=== PATIENT | female | born 2000 | race Caucasian/White ===

== ENCOUNTER 2019-10-02 09:30 | Emergency (ER) | payer OTHER, SELFPAY ==
[2019-10-02 09:35] VITALS: BP 152/89; PULSE 83; RESP 13; TEMP 36.7; O2SAT 98; BMI 27.4
--- NOTE | 2019-10-02 09:48 | DI.RAD.S_ITS ---
PROCEDURE: XR ACUTE ABDOMEN SERIES INDICATIONS: N/V/D TECHNIQUE: One view chest and two views of the abdomen were acquired. COMPARISON: None. FINDINGS: Surgical changes and devices: None. Chest: Lungs are clear. Heart size is normal. No pleural effusions. No pneumoperitoneum. Abdomen: Bowel gas pattern is normal. No suspicious calcifications. Visualized solid organ contours appear normal. Bones: No suspicious bony lesions. IMPRESSION: No acute process. Dictated by: Mary Rincon M.D. on 10/02/2019 at 10:50 Approved by: Mary Rincon M.D. on 10/02/2019 at 10:54
--- NOTE | 2019-10-02 09:48 | ED_ITS ---
HPI - Nausea/Vomiting/Diarrhea General Chief complaint: Nausea/Vomiting/Diarrhea Stated complaint: THROWING UP FOR THREE DAYS Time Seen by Provider: 10/02/19 09:34 Source: patient Mode of arrival: Ambulatory Limitations: no limitations History of Present Illness HPI Narrative: 19F daily smoker with noncontributory medical history presents with a chief complaint a few days of nausea, vomiting and diarrhea. She is beginning to feel little bit dizzy upon standing. She denies any pain but does admit to some cramping that builds until she has a bowel movement or vomits. She denies any bloody stools or emesis. She denies exposure to other ill persons. She denies any recent antibiotics, bad food or travel. She has had no runny nose, sore throat, cough or shortness of breath nor any suspicion of interaction with folks known to have COVID-19. MD complaint: nausea, vomiting and diarrhea Onset (ago): day(s) Description of Vomiting: food contents and watery Description of Diarrhea: watery Associated Abdominal Pain: Yes Location of pain: diffuse Severity: mild Quality: cramping Pain Consistency: intermittent Relieving factors: bowel movement and vomiting Exacerbating factors: none Context: other Associated symptoms: malaise Related Data Previous Rx's Medication Instructions Recorded ondansetron 4 mg PO TID-QID PRN #10 tab 10/02/19 Allergies Allergy/AdvReac Type Severity Reaction Status Date / Time Penicillins Allergy Verified 10/02/19 09:38 Review of Systems Constitutional Constitutional: Denies chills, Denies fatigue, Denies fever(s), Denies frequent falls, Denies lethargy and Reports weakness Eyes Eyes: Denies change in vision, Denies eye discharge, Denies irritation and Denies loss of vision ENT Ears, Nose, Mouth, and Throat: Denies change in voice, Denies dizziness, Denies neck pain, Denies sore throat and Denies throat swelling Cardiovascular Cardiovascular: Denies chest pain, Denies irregular heart rhythm, Denies lightheadedness, Denies palpitations, Denies dyspnea, Denies dyspnea on exertion and Denies orthopnea Respiratory Respiratory: Denies cough, Denies dyspnea, Denies dyspnea on exertion and Denies wheezing Gastrointestinal Gastrointestinal: Denies abdominal pain, Denies change in bowel habits, Reports diarrhea, Reports nausea and Reports vomiting Genitourinary Genitourinary: Denies hematuria, Denies flank pain, Denies urinary incontinence and Denies urinary urgency Musculoskeletal Musculoskeletal: Denies back pain, Denies muscle weakness, Denies neck pain, Denies numbness and Denies tingling Integumentary/Breasts Skin/Breast: Denies pruritus, Denies erythema, Denies rash and Denies wounds Neurologic Neurologic: Denies behavioral changes, Denies confusion, Denies dizziness, Denies frequent falls, Denies loss of vision, Denies numbness, Denies tingling and Reports weakness Psychiatric Psychiatric: Denies anxiety, Denies behavioral changes, Denies confusion, Denies depression, Denies homicidal ideation and Denies suicidal ideation Endocrine Endocrine: Denies fatigue, Denies flushing and Denies palpitations Hematologic/Lymphatic Hematologic/Lymphatic: Denies easy bruising Allergic/Immunologic Allergic/Immunologic: Denies urticaria, Denies throat swelling and Denies wheezing Patient History Social History Smoking Status: Current every day smoker Smoking Status: Current every day smoker alcohol intake frequency: holidays/special occasions only Substance Use Type: marijuana Exam Narrative Exam Narrative: GENERAL: [19] year old patient appears stated age. Well- nourished, well-developed patient, in mild distress. HEAD: Atraumatic. Normocephalic. EYES: Pupils equal round and reactive. Extraocular motions intact. No scleral icterus. No injection or drainage. ENT: Nose without bleeding, purulent drainage. Throat without erythema, tonsillar hypertrophy or exudate. Airway patent. NECK: Trachea midline. Non tender CARDIOVASCULAR: Regular rate and rhythm without murmurs, gallops, or rubs. RESPIRATORY: Clear to auscultation. Breath sounds equal bilaterally. No wheezes, rales, or rhonchi. GASTROINTESTINAL: Abdomen soft, non-tender, nondistended. Quiet bowel sounds in all 4 quadrants EXTREMITIES: No edema or joint tenderness. BACK: Nontender without deformity or crepitance. No flank tenderness. NEURO: AOx3. SKIN: No rash or erythema of visible areas Initial Vital Signs Initial Vital Signs: Vital Signs Temperature 98.0 F 10/02/19 09:35 Pulse Rate 83 10/02/19 09:35 Respiratory Rate 13 10/02/19 09:35 Blood Pressure 152/89 H 10/02/19 09:35 Pulse Oximetry 98 10/02/19 09:35 Course Course Course Narrative: Patient feeling much better after fluids and above-stated medications Orders Ordered: ED Orders 10/02/19 09:48 XR acute abdomen series Stat 10/02/19 10:03 Complete Blood Count AUTO DIFF Stat Comprehensive Metabolic Panel Stat Discontinued Medications Sodium Chloride (Normal Saline 0.9%) 1,000 mls @ 1,000 mls/hr IV BOLUS ONE Stop: 10/02/19 10:47 Last Infusion: 10/02/19 10:50 Dose: 0 mls/hr Documented by: Admin: 10/02/19 09:57 Dose: 1,000 mls/hr Documented by: MARCIAL Ondansetron HCl (Zofran) 4 mg IV NOW ONE Stop: 10/02/19 09:49 Last Admin: 10/02/19 09:57 Dose: 4 mg Documented by: MARCIAL Vital Signs Vital signs: Vital Signs - 8 hr 10/02/19 09:35 10/02/19 10:51 Temperature 98.0 F Pulse Rate 83 63 Respiratory Rate 13 Blood Pressure 152/89 H Blood Pressure [Left Arm] 125/79 Pulse Oximetry 98 100 MDM - Nausea/Vomiting/Diarrhea Lab Data Result diagrams: 10/02/19 10:03 10/02/19 10:03 Labs: Lab Results 10/02/19 10/02/19 Range/Units 10:03 10:03 WBC 3.8 L (4.5-11.0) X10^3/uL RBC 4.49 (4.0-5.2) X10^6/uL Hgb 14.3 (12.0-16.0) g/dL Hct 42.1 (36-46) % MCV 93.9 (80-100) fL MCH 31.8 (26-34) PG MCHC 33.9 (30-36) % RDW 13.5 (11.6-14.8) % Plt Count 247 (150-400) X10^3/uL Neut % (Auto) 47.1 L (50-75) % Lymph % (Auto) 35.7 (25-40) % [place] % (Auto) 11.4 (3-14) % Eos % (Auto) 5.0 H (2-4) % Baso % (Auto) 0.8 (0-2) % Neut # (Auto) 1800 (2422-9867) /uL Lymph # (Auto) 1300 (2515-9294) /uL [place] # (Auto) 400 (0-900) /uL Eos # (Auto) 200 (0-450) /uL Baso # (Auto) 0 (0-100) /uL Sodium 138 (137-145) mmol/L Potassium 4.1 (3.4-5.1) mmol/L Chloride 106 (98-107) mmol/L Carbon Dioxide 23 (22-32) mmol/L BUN 5 L (7-17) mg/dL Creatinine 0.64 (0.52-1.04) mg/dL Estimated GFR > 60.0 (>60) mL/min BUN/Creatinine Ratio 7.8 (6-22) Glucose 112 H (70-100) mg/dL Calcium 9.6 (8.4-10.2) mg/dL Total Bilirubin 1.0 (0.2-1.3) mg/dL AST 26 (14-36) IU/L ALT 19 (<35) IU/L Alkaline Phosphatase 57 (38-126) U/L Total Protein 7.3 (6.3-8.2) g/dL Albumin 4.5 (3.5-5.0) g/dL Globulin 2.8 (1.7-4.1) g/dL Albumin/Globulin Ratio 1.6 (1.0-2.8) Point of Care Testing Test Results Negative Urine Dip Bedside Urine Glucose Negative Bedside Urine Bilirubin - Negative Bedside Urine Ketone - Negative Urine Specific [place] 1.010 Bedside Urine Occult Blood - Negative Bedside Urine pH 7.0 Bedside Urine Protein - Negative Bedside Urine Urobilinogen - Negative Bedside Urine Nitrite - Negative Bedside Urine Leukocytes - Negative Esterase Discharge Plan Departure Patient Disposition: Home Clinical Impression: Nausea, Vomiting, and Diarrhea Discharge Date/Time: 10/02/19 10:55 Instructions: DI for Dehydration -- Adult, DI for Vomiting -- Adult Activity Restrictions/Additional Instructions: 1. Drink plenty of fluids with frequent small sips. 2. For the next 24 hours a clear liquid diet is advised. After that please employ a brat diet which would include bananas, rice, apples, toast. 3. Please take medications as directed. 4. Please follow-up with your doctor in the next 1-2 days. Call the office for an appointment. 5. Please return to the emergency Department for any worsening or persistent symptoms, such as increasing pain or fever. Prescriptions: New ondansetron 4 mg tablet,disintegrating 4 mg PO TID-QID PRN (Reason: nausea and vomiting) Qty: 10 RF: 0 Referrals: Ada Gavin MD [Primary Care Provider] - Stand Alone Forms: Work Release Note
[2019-10-02] MEDS: ONDANSETRON 4 MG/2 ML INJ IV (09:57)
[2019-10-02] MEDS: SODIUM CHLORIDE 0.9% 1,000 ML 1000 ML IV (09:57)
[2019-10-02 10:10] LABS: Add Manual Diff / Slide Review NO; Basophils Absolute Auto 0 /uL (0-100); Basophils Percent Auto 0.8 % (0-2); Eosinophils Absolute Auto 200 /uL (0-450); Hematocrit 42.1 % (36-46); Hemoglobin 14.3 g/dL (12.0-16.0); Lymphocytes Absolute Auto 1300 /uL (1100-4500); Lymphocytes Percent Auto 35.7 % (25-40); Mean Corpuscular HGB Conc 33.9 % (30-36); Mean Corpuscular Hemoglobin 31.8 PG (26-34); Mean Corpuscular Volume 93.9 fL (80-100); Monocytes Absolute Auto 400 /uL (0-900); Monocytes Percent Auto 11.4 % (3-14); Neutrophils Absolute Auto 1800 /uL (1500-7000); Neutrophils Percent Auto 47.1 % (50-75); Platelet Count 247 X10^3/uL (150-400); Red Blood Cell Count 4.49 X10^6/uL (4.0-5.2); Red Cell Distribution Width 13.5 % (11.6-14.8); White Blood Cell Count 3.8 X10^3/uL (4.5-11.0)
[2019-10-02 10:21] LABS: Albumin 4.5 g/dL (3.5-5.0); Albumin Globulin Ratio 1.6 (1.0-2.8); Carbon Dioxide 23 mmol/L (22-32); Chloride 106 mmol/L (98-107); Estimated Glomerular Filt Rate > 60.0 mL/min (>60); Globulin 2.8 g/dL (1.7-4.1); Total Protein 7.3 g/dL (6.3-8.2)
[2019-10-02 10:22] LABS: Alanine Aminotransferase 19 IU/L (<35); Alkaline Phosphatase 57 U/L (38-126); Aspartate Aminotransferase 26 IU/L (14-36); BUN Creatinine Ratio 7.8 (6-22); Blood Urea Nitrogen 5 mg/dL (7-17); Calcium 9.6 mg/dL (8.4-10.2); Glucose 112 mg/dL (70-100); HEMOLYSIS < 15 (0-50); Potassium 4.1 mmol/L (3.4-5.1); Sodium 138 mmol/L (137-145)
[2019-10-02 10:51] VITALS: BP 125/79; PULSE 63; O2SAT 100
== END 2019-10-02 10:55 | disposition home or self-care (01) ==
PROVIDERS: Emergency Provider Emergency Medicine; PCP Family Medicine
DX: R11.2 Nausea with vomiting, unspecified (principal); R19.7 Diarrhea, unspecified
CPT/HCPCS: 36415; 74022; 80053; 81003; 81025; 85025; 96361; 96374; 99284; J2405

== ENCOUNTER 2020-04-14 12:49 | Outpatient (RCR) | payer SELFPAY ==
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
--- NOTE | 2020-04-21 09:41 | PT-OP ANOTE ---
PT noticed that pt cancelled appointments. PT called pt on number in chart and the number is temporarily unavailable and so unable to speak with pt or leave message.
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
== END 2020-06-04 10:53 | disposition home or self-care (01) ==
LOC: PHYS 12:49
PROVIDERS: PCP Family Medicine; Referring Provider Family Medicine; Visit Provider Family Medicine
DX: S06.0X0D Concussion without loss of consciousness, subsequent encounter (principal); S13.4XXD Sprain of ligaments of cervical spine, subsequent encounter; S60.221D Contusion of right hand, subsequent encounter
CPT/HCPCS: 97162; 97535

== ENCOUNTER 2020-05-08 15:51 | Emergency (ER) | payer SELFPAY ==
[2020-05-08 16:02] VITALS: BP 142/102; PULSE 122; RESP 18; TEMP 37.1; O2SAT 100; BMI 26.5
--- NOTE | 2020-05-08 16:22 | ED_ITS ---
HPI - Female Genitourinary <JACEK Sams - Last Filed: 05/08/20 18:22> General Chief complaint: Urogenital-Female Stated complaint: states kidney pain and blood/ clots in urine Time Seen by Provider: 05/08/20 15:58 Source: patient Mode of arrival: Ambulatory Limitations: no limitations History of Present Illness HPI Narrative: This is a 20 year female, occasional smoker, who has no contributory medical history presents to ED with chief complain of urinary frequency since 2:00 a.m. yesterday, suprapubic discomfort, urinary discomfort, subjective fever and chills, blood clots in the urine. Patient had picked up [id number] UTI test strip from the pharmacy and had tested her urine at home which showed high white count. Patient reports mucousy looking urine. Patient reports severe right flank pain today and had vomited once from the pain. Patient denies on anticoagulants or antiplatelets. LMP 04/17/2020. Patient reports patient's roommates test positive for COVID infection on April 21, 2020 but roommate has been self quarantine herself in other room. Patient denies history of UTIs, kidney stones, or pyelonephritis. Patient had taken Azol for urinary discomfort. Related Data Previous Rx's Medication Instructions Recorded ondansetron 4 mg PO TID-QID PRN #10 tab 10/02/19 hydrocodone-acetaminophen [Fiatt] 1 tab PO TID PRN #7 tab 05/08/20 ondansetron 4 mg PO TID-QID PRN #10 tab 05/08/20 sulfamethoxazole-trimethoprim 1 tab PO BID 10 Days #20 tab 05/08/20 Allergies Allergy/AdvReac Type Severity Reaction Status Date / Time Penicillins Allergy Verified 05/08/20 16:07 Review of Systems <JACEK Sams - Last Filed: 05/08/20 18:22> Review of Systems Narrative: General: See HPI HEENT: Denies sinus pain, ear pain, sore throat, difficulty swallowing, dizziness. Respiratory: Denies dyspnea, cough, wheezing, hemoptysis, sputum. Cardiovascular: Denies chest pain, palpitations, orthopnea, edema. Gastrointestinal: Denies nausea, (+) vomiting, abdominal pain, diarrhea, constipation, melena. : See HPI Musculoskeletal: See HPI Skin: Denies rash, skin lesions, or other. Neurologic: Denies weakness, headache, numbness, change in speech, confusion, seizures, incoordination. Psychiatric: No concerning psychosocial issues. 12-point review of systems is negative except for those stated above. Patient History <JACEK Sams - Last Filed: 05/08/20 18:22> Medical History No significant past medical history Surgical History No pertinent past surgical history Smoking Status: Current some day smoker alcohol intake frequency: holidays/special occasions only Substance Use Type: marijuana Exam <[facility] - Last Filed: 05/08/20 18:22> Narrative Exam Narrative: GEN: Alert, oriented x 3, well appearing and nourished, and slightly anxious. Head: Normal cephalic, atraumatic. No scalp or temporal tenderness, palpable mass or rash. EYES: Pupils are equal, round, and reactive to light and accommodation. Extraocular muscles are intact bilaterally. There is no subconjunctival hemorrhage, exudate and sclera non-icteric. ENT: Hearing grossly intact. Nose without bleeding, purulent discharge or deviation. Mucous membrane moist, no mucosal lesion. Throat without erythema, tonsillar hypertrophy or exudate. Uvula in midline, airway patent. Neck: Trachea in midline. No JVD, non-tender without lymphadenopathy. No masses or thyroid megaly. Supple, non-tender and no meningeal signs. CARDIAC: Normal regular rate and rhythm without murmurs, gallops, or rubs. No chest wall tenderness. No peripheral edema, cyanosis or pallor. Capillary refill is less than 2 seconds. RESPIRATORY: Lungs are clear to auscultate bilaterally. No cough, wheezes, rales, or rhonchi. No stridor, respiratory distress, increase work of breathing, or accessary muscle used. ABD: Abdomen soft and non-distended. Tenderness to palpate in suprapubic kobi on. No guarding or rebound tenderness to palpate. Bowel sounds are normal in all 4 quadrants. There is no palpable masses or organomegaly. EXT: Full painless ROM of all extremities with no loss of sensation, strength, effusion or edema. SKIN: Warm, dry, normal color for patient. No erythema, lesions or rash over visible areas. BACK: Exquisite pain in right flank to percuss. Mid low back pain tenderness to percuss. No Deformity or crepitance. NEUROLOGICAL: Alert and oriented to place, time and person. Sensation and motor function intact bilaterally. No facial droops, dysphasia. PSYCHIATRIC: Good judgement and reason, without hallucinations, abnormal affect or abnormal behaviors during the examination. Patient is not suicidal. Initial Vital Signs Initial Vital Signs: Vital Signs Temperature 98.8 F 05/08/20 16:02 Pulse Rate 122 H 05/08/20 16:02 Respiratory Rate 18 05/08/20 16:02 Blood Pressure 142/102 H 05/08/20 16:02 Pulse Oximetry 100 05/08/20 16:02 <Zahraa Guo DO - Last Filed: 05/09/20 07:32> Initial Vital Signs Initial Vital Signs: Vital Signs Temperature 98.8 F 05/08/20 16:02 Pulse Rate 122 H 05/08/20 16:02 Respiratory Rate 18 05/08/20 16:02 Blood Pressure 142/102 H 05/08/20 16:02 Pulse Oximetry 100 05/08/20 16:02 Scores <JACEK Sams - Last Filed: 05/08/20 18:22> GCS [place] coma scale eye opening: Spontaneous [place] coma scale verbal response: Orientated [place] coma scale motor response: Obey commands Cristopher coma scale total score: 15 qSOFA Altered Mental Status (GCS <15): No Respiratory rate greater than/equal to 22: No Systolic blood pressure less than or equal to 100: No qSOFA Total: 0 0-1 Not High Risk 1-3 High risk Course <JACEK Sams - Last Filed: 05/08/20 18:22> Orders Ordered: Discontinued Medications Hydrocodone Bitart/Acetaminophen (Hydrocodone/Acet 5/325 Prepack) 1 bottle MISC SEEINSTR ONE Stop: 05/08/20 18:12 Last Admin: 05/08/20 18:46 Dose: 1 bottle Documented by: DARLEEN Sodium Chloride (Normal Saline 0.9%) 1,000 mls @ 1,000 mls/hr IV BOLUS ONE Stop: 05/08/20 17:05 Last Infusion: 05/08/20 17:53 Dose: 0 mls/hr Documented by: Admin: 05/08/20 16:31 Dose: 1,000 mls/hr Documented by: DARLEEN Ketorolac Tromethamine (Ketorolac 60 Mg/2 Ml Vial) 15 mg IV NOW ONE Stop: 05/08/20 16:21 Last Admin: 05/08/20 16:30 Dose: 15 mg Documented by: DARLEEN Ondansetron HCl (Ondansetron 4 Mg/2 Ml Inj) 4 mg IV NOW ONE Stop: 05/08/20 17:31 Last Admin: 05/08/20 17:47 Dose: 4 mg Documented by: TYRONE Ondansetron HCl (Ondansetron 4 Mg Odt Prepack) 1 bottle MISC SEEINSTR ONE Stop: 05/08/20 18:12 Last Admin: 05/08/20 18:46 Dose: 1 bottle Documented by: DARLEEN Trimethoprim/Sulfamethoxazole (Trimeth/Sulfa 160/800 (Ds) Tablet) 1 tab PO NOW ONE Stop: 05/08/20 17:27 Last Admin: 05/08/20 17:47 Dose: 1 tab Documented by: TYRONE Trimethoprim/Sulfamethoxazole (Trimeth/Sulfa 160/800 Prepack) 1 bottle MISC SEEINSTR ONE Stop: 05/08/20 18:12 Last Admin: 05/08/20 18:46 Dose: 1 bottle Documented by: DARLEEN Reevaluation(s) Reevaluation #1: Patient reports back pain and feeling improved after IV Toradol and fluid infusion. Lab findings shared with patient and family member at bedside. Currently waiting for CT results. Time: 17:02 Vital Signs Vital signs: Vital Signs - 8 hr 05/08/20 16:02 05/08/20 17:05 05/08/20 17:07 Temperature 98.8 F Pulse Rate 122 H 87 74 Respiratory Rate 18 Blood Pressure 142/102 H 122/81 Pulse Oximetry 100 100 100 <Zahraa Guo DO - Last Filed: 05/09/20 07:32> Orders Ordered: Discontinued Medications Hydrocodone Bitart/Acetaminophen (Hydrocodone/Acet 5/325 Prepack) 1 bottle MISC SEEINSTR ONE Stop: 05/08/20 18:12 Last Admin: 05/08/20 18:46 Dose: 1 bottle Documented by: DARLEEN Sodium Chloride (Normal Saline 0.9%) 1,000 mls @ 1,000 mls/hr IV BOLUS ONE Stop: 05/08/20 17:05 Last Infusion: 05/08/20 17:53 Dose: 0 mls/hr Documented by: Admin: 05/08/20 16:31 Dose: 1,000 mls/hr Documented by: DARLEEN Ketorolac Tromethamine (Ketorolac 60 Mg/2 Ml Vial) 15 mg IV NOW ONE Stop: 05/08/20 16:21 Last Admin: 05/08/20 16:30 Dose: 15 mg Documented by: DARLEEN Ondansetron HCl (Ondansetron 4 Mg/2 Ml Inj) 4 mg IV NOW ONE Stop: 05/08/20 17:31 Last Admin: 05/08/20 17:47 Dose: 4 mg Documented by: TYRONE Ondansetron HCl (Ondansetron 4 Mg Odt Prepack) 1 bottle MISC SEEINSTR ONE Stop: 05/08/20 18:12 Last Admin: 05/08/20 18:46 Dose: 1 bottle Documented by: DARLEEN Trimethoprim/Sulfamethoxazole (Trimeth/Sulfa 160/800 (Ds) Tablet) 1 tab PO NOW ONE Stop: 05/08/20 17:27 Last Admin: 05/08/20 17:47 Dose: 1 tab Documented by: TYRONE Trimethoprim/Sulfamethoxazole (Trimeth/Sulfa 160/800 Prepack) 1 bottle MISC SEEINSTR ONE Stop: 05/08/20 18:12 Last Admin: 05/08/20 18:46 Dose: 1 bottle Documented by: DARLEEN Vital Signs Vital signs: Vital Signs - 8 hr 05/08/20 16:02 05/08/20 17:05 05/08/20 17:07 Temperature 98.8 F Pulse Rate 122 H 87 74 Respiratory Rate 18 Blood Pressure 142/102 H 122/81 Pulse Oximetry 100 100 100 MDM - Female Genitourinary <Sunil JACEK Massey - Last Filed: 05/08/20 18:22> Differential Diagnosis Differential diagnosis: Likely cystitis and other (Pyelonephritis, renal stone, sepsis) Medical Records Attestation: I reviewed the patient's medical records. Lab Data Attestation: I reviewed the patient's lab results. Result diagrams: 05/08/20 16:20 05/08/20 16:20 Labs: Lab Results 05/08/20 05/08/20 05/08/20 Range/Units 16:11 16:20 16:20 WBC 15.7 H (4.5-11.0) X10^3/uL RBC 4.29 (4.0-5.2) X10^6/uL Hgb 13.3 (12.0-16.0) g/dL Hct 39.4 (36-46) % MCV 91.7 (80-100) fL MCH 31.1 (26-34) PG MCHC 33.9 (30-36) % RDW 13.2 (11.6-14.8) % Plt Count 272 (150-400) X10^3/uL Neut % (Auto) 79.6 H (50-75) % Lymph % (Auto) 11.3 L (25-40) % [place] % (Auto) 7.8 (3-14) % Eos % (Auto) 1.1 L (2-4) % Baso % (Auto) 0.2 (0-2) % Neut # (Auto) 63618 H (3113-2806) /uL Lymph # (Auto) 1800 (2077-6146) /uL [place] # (Auto) 1200 H (0-900) /uL Eos # (Auto) 200 (0-450) /uL Baso # (Auto) 0 (0-100) /uL Sodium 136 L (137-145) mmol/L Potassium 3.6 (3.4-5.1) mmol/L Chloride 104 (98-107) mmol/L Carbon Dioxide 25 (22-32) mmol/L BUN 10 (7-17) mg/dL Creatinine 0.59 (0.52-1.04) mg/dL Estimated GFR > 60.0 (>60) mL/min BUN/Creatinine Ratio 16.9 (6-22) Glucose 106 H (70-100) mg/dL Lactate (0.7-2.1) mmol/L Calcium 9.6 (8.4-10.2) mg/dL Urine RBC 1-5/hpf (0-5/HPF) Urine WBC 5-10/hpf H (0-5/HPF) Urine Bacteria None seen (None) Ur Culture Indicated? Specimen cultured 05/08/20 Range/Units 16:20 WBC (4.5-11.0) X10^3/uL RBC (4.0-5.2) X10^6/uL Hgb (12.0-16.0) g/dL Hct (36-46) % MCV (80-100) fL MCH (26-34) PG MCHC (30-36) % RDW (11.6-14.8) % Plt Count (150-400) X10^3/uL Neut % (Auto) (50-75) % Lymph % (Auto) (25-40) % [place] % (Auto) (3-14) % Eos % (Auto) (2-4) % Baso % (Auto) (0-2) % Neut # (Auto) (9495-9041) /uL Lymph # (Auto) (7056-7582) /uL [place] # (Auto) (0-900) /uL Eos # (Auto) (0-450) /uL Baso # (Auto) (0-100) /uL Sodium (137-145) mmol/L Potassium (3.4-5.1) mmol/L Chloride (98-107) mmol/L Carbon Dioxide (22-32) mmol/L BUN (7-17) mg/dL Creatinine (0.52-1.04) mg/dL Estimated GFR (>60) mL/min BUN/Creatinine Ratio (6-22) Glucose (70-100) mg/dL Lactate 0.7 (0.7-2.1) mmol/L Calcium (8.4-10.2) mg/dL Urine RBC (0-5/HPF) Urine WBC (0-5/HPF) Urine Bacteria (None) Ur Culture Indicated? Point of Care Testing Test Results Negative Urine Dip Bedside Urine Glucose Negative Bedside Urine Bilirubin - Negative Bedside Urine Ketone +/- 5 Urine Specific Mcneil 1.010 Bedside Urine Occult Blood +++ Bedside Urine pH 6.0 Bedside Urine Protein + 30 Bedside Urine Urobilinogen - Negative Bedside Urine Nitrite + Positive Bedside Urine Leukocytes ++ [address]-KUB: Radiologist's Impression: [address] [id number] Scan ReportSigned Patient: Sangita Barbosa [facility]#: [id number]: 2000Acct:[id number]/Sex: 20 / FDate of Service: 05/08/20Loc: EDAccession Number: [id number] Procedure: CT kidney ureter bladder (KUB) Ordering Provider: Sunil Massey PROCEDURE: CT KIDNEY URETER BLADDER (KUB) INDICATIONS: back pain, blood clots in urine. pyelo vs stone? TECHNIQUE: Noncontrast 5 mm thick sections acquired from the diaphragms to the symphysis. 5 mm thick coronal and sagittal reformats were then performed. For radiation dose reduction, the following was used: automated exposure control, adjustment of mA and/or kV according to patient size. COMPARISON: None. FINDINGS: Image quality: Excellent. Lung bases: Lung bases are clear. Heart size is normal. Urinary system: Both kidneys are normal in size. No kidney stones. No hydronephrosis or perinephric fat stranding. Both ureters appear non-dilated throughout their expected courses. The bladder demonstrates diffuse wall thickening with periserosal inflammation consistent with acute cystitis. There is also inflammation surrounding the right distal ureter and wall thickening of the right proximal ureter. Other solid organs: Liver is normal in size. Gallbladder is normal . Pancreas is normal in contours. Spleen is normal in size. No adrenal nodules. Peritoneum and bowel: Unenhanced bowel loops demonstrate normal wall thickness and caliber. No free fluid or air. The appendix is normal. Nodes and vessels: No retroperitoneal or mesenteric adenopathy by size criteria. Aorta and inferior vena cava are normal in caliber. Abdominal wall: No ventral hernias. Pelvis: No free pelvic fluid. No inguinal hernias or adenopathy. Bones: No suspicious bony lesions. No vertebral body compression fractures. IMPRESSION: 1. No kidney stone. 2. Inflammation around the bladder and right ureter consistent with acute cystitis, possible early pyelonephritis on the right. Dictated by: Gino Claudio M.D. on 05/08/2020 at 16:59 Approved by: Gino Claudio M.D. on 05/08/2020 at 17:06 [facility] Narrative Medical decision making narrative: This is a 20 year female who has no significant medical history, previous kidney infection, UTIs, kidney stones presents to ED with suprapubic tenderness, blood clots with urination, right flank tenderness with dysuria, and subjective fever and chills since yesterday early in the morning. Physical exam appreciated exquisite tenderness to percuss in low back pain and right flank pain with suprapubic tenderness. Patient does not appears to be toxic at this time. Initial heart rate was 120s which improved to normal heart rate shortly after the bed rest. There is leukocytosis with white count 15.7 with elevated neutrophils. Lactate was normal. Chemistry test was unremarkable with normal kidney function test. Urine test was negative. UA shows 3+ blood, positive nitrite and 2+ urine leukocyte esterase. 5-10/HPF of urine WBC on micro test. Urine cultures pending. Given patient has flank pain with 1 episode of vomiting and blood clots in urine, CT KUB ordered to rule out kidney stones or kidney infection due to stones. KUB result shows no stones, hydronephrosis. The bladder demonstrates type use wall thickening with Suellen serosal inflammation consistent with acute cystitis and also surrounding the right distal ureter and wall thickening of the right proximal ureter indicating possible early pyelonephritis on the right side. Patient was treated with IV fluid, IV Toradol, IV zofran with much improvement. Given patient is young, without chronic medical problems and is able to tolerate fluids, will try outpatient treatment with the antibiotic medications SeptraDS for 10 day course for pyelonephritis. We discussed strict return precautions with patient and mother and they both verbalized understanding in agreement with the treatment plan. Advised to fol low up with PCP in 2-3 days for recheck. Discussed narcotic pain medications with patient discharged to home with few tabs of Fiatt for severe back pain. Patient also discharged to home with Zofran to hydrate adequately. <Zahraa Guo, DO - Last Filed: 05/09/20 07:32> Lab Data Labs: Lab Results 05/08/20 05/08/20 05/08/20 Range/Units 16:11 16:20 16:20 WBC 15.7 H (4.5-11.0) X10^3/uL RBC 4.29 (4.0-5.2) X10^6/uL Hgb 13.3 (12.0-16.0) g/dL Hct 39.4 (36-46) % MCV 91.7 (80-100) fL MCH 31.1 (26-34) PG MCHC 33.9 (30-36) % RDW 13.2 (11.6-14.8) % Plt Count 272 (150-400) X10^3/uL Neut % (Auto) 79.6 H (50-75) % Lymph % (Auto) 11.3 L (25-40) % [place] % (Auto) 7.8 (3-14) % Eos % (Auto) 1.1 L (2-4) % Baso % (Auto) 0.2 (0-2) % Neut # (Auto) 54182 H (8828-9656) /uL Lymph # (Auto) 1800 (1532-1136) /uL [place] # (Auto) 1200 H (0-900) /uL Eos # (Auto) 200 (0-450) /uL Baso # (Auto) 0 (0-100) /uL Sodium 136 L (137-145) mmol/L Potassium 3.6 (3.4-5.1) mmol/L Chloride 104 (98-107) mmol/L Carbon Dioxide 25 (22-32) mmol/L BUN 10 (7-17) mg/dL Creatinine 0.59 (0.52-1.04) mg/dL Estimated GFR > 60.0 (>60) mL/min BUN/Creatinine Ratio 16.9 (6-22) Glucose 106 H (70-100) mg/dL Lactate (0.7-2.1) mmol/L Calcium 9.6 (8.4-10.2) mg/dL Urine RBC 1-5/hpf (0-5/HPF) Urine WBC 5-10/hpf H (0-5/HPF) Urine Bacteria None seen (None) Ur Culture Indicated? Specimen cultured 05/08/20 Range/Units 16:20 WBC (4.5-11.0) X10^3/uL RBC (4.0-5.2) X10^6/uL Hgb (12.0-16.0) g/dL Hct (36-46) % MCV (80-100) fL MCH (26-34) PG MCHC (30-36) % RDW (11.6-14.8) % Plt Count (150-400) X10^3/uL Neut % (Auto) (50-75) % Lymph % (Auto) (25-40) % [place] % (Auto) (3-14) % Eos % (Auto) (2-4) % Baso % (Auto) (0-2) % Neut # (Auto) (6603-9508) /uL Lymph # (Auto) (3076-5402) /uL [place] # (Auto) (0-900) /uL Eos # (Auto) (0-450) /uL Baso # (Auto) (0-100) /uL Sodium (137-145) mmol/L Potassium (3.4-5.1) mmol/L Chloride (98-107) mmol/L Carbon Dioxide (22-32) mmol/L BUN (7-17) mg/dL Creatinine (0.52-1.04) mg/dL Estimated GFR (>60) mL/min BUN/Creatinine Ratio (6-22) Glucose (70-100) mg/dL Lactate 0.7 (0.7-2.1) mmol/L Calcium (8.4-10.2) mg/dL Urine RBC (0-5/HPF) Urine WBC (0-5/HPF) Urine Bacteria (None) Ur Culture Indicated? Point of Care Testing Test Results Negative Urine Dip Bedside Urine Glucose Negative Bedside Urine Bilirubin - Negative Bedside Urine Ketone +/- 5 Urine Specific [place] 1.010 Bedside Urine Occult Blood +++ Bedside Urine pH 6.0 Bedside Urine Protein + 30 Bedside Urine Urobilinogen - Negative Bedside Urine Nitrite + Positive Bedside Urine Leukocytes ++ 125 Esterase Discharge Plan Departure Patient Disposition: Home Clinical Impression: Bladder infection Instructions: DI for Acute Cystitis Activity Restrictions/Additional Instructions: You have been diagnosed with [acute cystitis and early right-sided pyelonephritis. Slight increase in white count to 15.7. No signs for sepsis. Urine cultures pending. CT test indicates acute cystitis and early kidney infection. You were hydrated with IV fluid, 2 doses of Zofran for nausea and Toradol provided for pain. You were able to tolerate fluids and antibiotic medication in ED]. What to do: *Take your medications as directed. Please continue with antibiotic medications Septra twice a day for next 10 days. You can use [id number] Tylenol and or Motrin as needed for discomfort. Tylenol 650 mg up to 3 to 4 times a day as needed. Ibuprofen 400-600 mg up to 3 times a day as needed for pain with food to decrease GI irritation. For severe pain, you could take half tab to 1 tab of Fiatt. Use Zofran as needed for nausea and hydrate adequately. *Follow up with your primary care provider in 2-3 days, call for an appointment. Let them know you were seen in the ED and that we asked you to be seen in follow up. *Return to ED if you have any new, worsening, or concerning symptoms, such as [chest pain, breathing difficulty, high fever, worsening pain, unable to tolera te fluids, feeling like faint or any acute concerns]. Prescriptions: New ondansetron 4 mg tablet,disintegrating 4 mg PO TID-QID PRN (Reason: nausea and vomiting) Qty: 10 RF: 0 sulfamethoxazole-trimethoprim 800-160 mg tablet 1 tab PO BID 10 Days Qty: 20 RF: 0 hydrocodone-acetaminophen [Fiatt] 5-325 mg tablet 1 tab PO TID PRN (Reason: pain) Qty: 7 RF: 0 No Action ondansetron 4 mg tablet,disintegrating 4 mg PO TID-QID PRN (Reason: nausea and vomiting) Qty: 10 RF: 0 Referrals: Ada Gavin MD [Primary Care Provider] - <Zahraa Guo DO - Last Filed: 05/09/20 07:32> [facility] Attestation: I was immediately available in the department for consultation. Documentation has been reviewed. I agree with assessment and plan.
[2020-05-08] MEDS: KETOROLAC 60 MG/2 ML VIAL 15 MG IV (16:30)
[2020-05-08] MEDS: SODIUM CHLORIDE 0.9% 1,000 ML 1000 ML IV (16:31)
[2020-05-08 16:34] LABS: Bacteria Urine None Seen
[2020-05-08 16:46] LABS: Add Manual Diff / Slide Review NO; Basophils Absolute Auto 0 /uL (0-100); Basophils Percent Auto 0.2 % (0-2); Eosinophils Absolute Auto 200 /uL (0-450); Eosinophils Percent Auto 1.1 % (2-4); Hematocrit 39.4 % (36-46); Hemoglobin 13.3 g/dL (12.0-16.0); Lymphocytes Absolute Auto 1800 /uL (1100-4500); Lymphocytes Percent Auto 11.3 % (25-40); Mean Corpuscular HGB Conc 33.9 % (30-36); Mean Corpuscular Hemoglobin 31.1 PG (26-34); Mean Corpuscular Volume 91.7 fL (80-100); Monocytes Absolute Auto 1200 /uL (0-900); Monocytes Percent Auto 7.8 % (3-14); Neutrophils Absolute Auto 12500 /uL (1500-7000); Neutrophils Percent Auto 79.6 % (50-75); Platelet Count 272 X10^3/uL (150-400); Red Blood Cell Count 4.29 X10^6/uL (4.0-5.2); Red Cell Distribution Width 13.2 % (11.6-14.8); White Blood Cell Count 15.7 X10^3/uL (4.5-11.0)
[2020-05-08 16:50] LABS: Lactate (Lactic Acid) 0.7 mmol/L (0.7-2.1)
[2020-05-08 16:51] LABS: BUN Creatinine Ratio 16.9 (6-22); Blood Urea Nitrogen 10 mg/dL (7-17); Calcium 9.6 mg/dL (8.4-10.2); Carbon Dioxide 25 mmol/L (22-32); Chloride 104 mmol/L (98-107); Estimated Glomerular Filt Rate > 60.0 mL/min (>60); Glucose 106 mg/dL (70-100); HEMOLYSIS < 15 (0-50); Potassium 3.6 mmol/L (3.4-5.1); Sodium 136 mmol/L (137-145)
[2020-05-08 16:53] LABS: Culture Indicated Urine Specimen Cultured; RBC Urine 1-5/HPF (0-5/HPF); WBC Urine 5-10/HPF (0-5/HPF)
[2020-05-08 17:05] VITALS: PULSE 87; O2SAT 100
[2020-05-08 17:07] VITALS: BP 122/81; PULSE 74; O2SAT 100
[2020-05-08] MEDS: TRIMETH/SULFA 160/800 (DS) TABLET 1 TAB PO (17:47)
[2020-05-08] MEDS: ONDANSETRON 4 MG/2 ML INJ IV (17:47)
[2020-05-08] MEDS: TRIMETH/SULFA 160/800 PREPACK 1 BOTTLE MISC (18:46)
[2020-05-08] MEDS: ONDANSETRON 4 MG ODT PREPACK 1 BOTTLE MISC (18:46)
[2020-05-08] MEDS: HYDROCODONE/ACET 5/325 PREPACK 1 BOTTLE MISC (18:46)
[2020-05-08 18:47] VITALS: BP 119/69; PULSE 62; RESP 16; O2SAT 99
== END 2020-05-08 18:55 | disposition home or self-care (01) ==
PROVIDERS: Emergency Provider Nurse Practitioner Family; PCP Family Medicine
DX: N30.01 Acute cystitis with hematuria (principal); R50.9 Fever, unspecified; R11.10 Vomiting, unspecified
CPT/HCPCS: 36415; 74176; 80048; 81003; 81015; 81025; 83605; 85025; 87077; 87086; 87186; 96361; 96374; 96375; 99283; 99284; J1885; J2405